=== PATIENT | female | born 1990 | race Caucasian/White ===

== ENCOUNTER 2021-07-23 09:12 | Emergency (ER) | payer MEDICAID ==
[~2021-07-23] VITALS: Ht 157.5 cm; Wt 56.7 kg
[2021-07-23 09:17] VITALS: BP 130/85
--- NOTE | 2021-07-23 09:17 | NUR ---
BIBS HEADACHE SINCE SHE HAD COVID 15 DAYS AGO. VITALS ARE WITHIN NORMAL LIMITS.
--- NOTE | 2021-07-23 09:27 | NUR ---
PT SIGNED WAIVER FOR CT
--- NOTE | 2021-07-23 09:28 | NUR ---
PT TAKEN TO CT
[2021-07-23] MEDS ORDERED: SUMATRIPTAN SUCCINATE 6 MG/0.5 ML VIAL SQ ONE ×2 (09:30→09:34)
[2021-07-23] MEDS ORDERED: KETOROLAC TROMETHAMINE INJ 30 MG/ML VIAL IM ONE (09:30)
[2021-07-23] MEDS ORDERED: PROCHLORPERAZINE EDISYLATE 10 MG/2 ML VIAL IM ONE (09:30)
[2021-07-23] MEDS ORDERED: PROCHLORPERAZINE EDISYLATE 10 MG/2 ML VIAL ONE (09:34)
[2021-07-23] MEDS ORDERED: KETOROLAC TROMETHAMINE INJ 30 MG/ML VIAL ONE (09:34)
[2021-07-23] MEDS ORDERED: SODI88SP18 BNOSTRILS (09:54)
[2021-07-23] MEDS ORDERED: FLUT16SP BNOSTRILS (09:54)
[2021-07-23] MEDS ORDERED: PSEU120T83 PO (09:54)
== END 2021-07-23 10:05 | disposition home or self-care (01) ==
LOC: ER 09:29
DX: J32.9 Chronic sinusitis, unspecified (principal); G44.209 Tension-type headache, unspecified, not intractable; Z86.16 Personal history of COVID-19; Z79.810 Long term (current) use of selective estrogen receptor modulators (SERMs); Z79.899 Other long term (current) drug therapy
CPT/HCPCS: 70450; 96372; 99284; J0780; J1885; J3030

== ENCOUNTER 2021-07-23 11:24 | Emergency (ER) | payer MEDICAID ==
[~2021-07-23] VITALS: Ht 167.6 cm; Wt 59.0 kg
[~2021-07-23 11:24] MED LIST: FLUT16SP BNOSTRILS; PSEU120T83 PO; SODI88SP18 BNOSTRILS
--- NOTE | 2021-07-23 11:37 | NUR ---
[id number], FELT SHORT OF BREATH, DIFFICULTY TAKING DEEP BREATHS S/P DICHARGE EARLIER FROM ED. VITALS ARE WITHIN NORMAL LIMITS. BREATHING IS EVEN AND UNLABORED. PT ATTACHED TO MONITOR. WARM BLANKET PROVIDED FOR COMFORT. WILLIE WOODWARD.
[2021-07-23] MEDS ORDERED: LORAZEPAM 1 MG TABLET PO ONE (13:00)
[2021-07-23] MEDS ORDERED: LORAZEPAM 1 MG TABLET ONE (13:02)
--- NOTE | 2021-07-23 14:21 | NUR ---
Patient discharged to home in stable condition. Written and verbal after care instructions given. Patient verbalizes understanding of instruction.
[2021-07-23 14:23] VITALS: BP 131/85
== END 2021-07-23 14:23 | disposition home or self-care (01) ==
LOC: ER 11:43
DX: R06.02 Shortness of breath (principal); Z79.810 Long term (current) use of selective estrogen receptor modulators (SERMs); Z79.899 Other long term (current) drug therapy
CPT/HCPCS: 71045-TC

== ENCOUNTER 2023-06-05 10:30 | Emergency (ER) | payer MEDICAID ==
[~2023-06-05] VITALS: Ht 160 cm; Wt 59.0 kg
[2023-06-05 10:58] VITALS: TEMP 97.9
[2023-06-05] MEDS ORDERED: ONDANSETRON HCL/PF 4 MG/2 ML VIAL ONE (11:45)
[2023-06-05 12:00] LABS: BASOPHILS % (AUTO) 0.5 % (0.0-2.0); EOSINOPHILS # (AUTO) 0.1 K/uL (0.0-0.7); EOSINOPHILS % (AUTO) 1.3 % (0.0-6.0); HEMATOCRIT 40 % (33-45); HEMOGLOBIN 13.2 g/dL (11.5-14.8); LYMPHOCYTES # (AUTO) 1.4 K/uL (0.8-4.8); LYMPHOCYTES % (AUTO) 33.3 % (20.0-44.0); MEAN CORPUSCULAR HEMOGLOBIN 29 PG (26.0-33.0); MEAN CORPUSCULAR HGB CONC 33 g/dl (31.0-36.0); MEAN CORPUSCULAR VOLUME 87 fL (82-100); MONOCYTES # (AUTO) 0.2 K/uL (0.1-1.30); MONOCYTES % (AUTO) 5.6 % (2.0-12.0); NEUTROPHILS # (AUTO) 2.5 K/uL (1.8-8.9); NEUTROPHILS % (AUTO) 59.3 % (43.0-81.0); PLATELET COUNT (AUTO) 199 K/uL (150-450); RED BLOOD CELL COUNT(AUTO) 4.59 MIL/uL (4.0-5.2); RED CELL DISTRIBUTION WIDTH 13.3 % (11.5-15.0); WHITE BLOOD COUNT (AUTO) 4.3 K/uL (4.3-11.0)
[2023-06-05] MEDS ORDERED: ONDANSETRON HCL/PF 4 MG/2 ML VIAL IVP ONE (12:00)
[2023-06-05] MEDS ORDERED: IV NS 0.9% 1,000 ML BAG IV ONE (12:00)
[2023-06-05 12:17] LABS: CALCIUM, SERUM 9.1 mg/dL (8.5-10.1); CREATININE 0.6 mg/dL (0.6-1.3); POTASSIUM 3.7 mmol/L (3.5-5.1)
[2023-06-05 12:32] LABS: ALBUMIN 4.1 g/dL (3.4-5.0); BILIRUBIN,DIRECT 0.1 mg/dL (0.0-0.2); BILIRUBIN,TOTAL 0.5 mg/dL (0.2-1.0); TOTAL PROTEIN, SERUM 8.1 g/dL (6.4-8.2)
[2023-06-05 13:55] LABS: APPEARANCE,URINE CLEAR (CLEAR); BILIRUBIN,URINE NEGATIVE (NEGATIVE); BLOOD, URINE NEGATIVE Ery/uL (NEGATIVE); COLOR,URINE YELLOW (YELLOW); KETONES,URINE NEGATIVE (NEGATIVE); LEUKOCYTE ESTERASE ,URINE 1+ (NEGATIVE); NITRITE, URINE NEGATIVE (NEGATIVE); PH,URINE 7.5 (5.0-8.0); PROTEIN,URINE NEGATIVE (NEGATIVE); UGLUCOSE NEGATIVE (NEGATIVE); UROBILINOGEN,URINE 0.2 EU/dL (0.2)
[2023-06-05 13:57] LABS: ADD URINE CULTURE YES; BACTERIA,URINE Rare /HPF (None Seen); PREGNANCY TEST URINE QUAL NEGATIVE (NEGATIVE); RBC,URINE 0-2 /HPF (0-2); SQUAMOUS EPITHELIAL CELL,UR Few /HPF (None Seen)
[2023-06-05] MEDS ORDERED: CEPH500T PO (14:09)
[2023-06-05] MEDS ORDERED: ONDA4TAB5 PO (14:09)
[2023-06-05 14:31] VITALS: BP 115/70; O2SAT 100
== END 2023-06-05 14:22 | disposition home or self-care (01) ==
LOC: ER 10:38
DX: N39.0 Urinary tract infection, site not specified (principal); R11.2 Nausea with vomiting, unspecified; R10.2 Pelvic and perineal pain; Z79.899 Other long term (current) drug therapy
CPT/HCPCS: 99283; 96374; 96361; 85025; 80048; 87086; 80076; 84703; 81001; 36415; J2405